=== PATIENT | male | born 1990 | race Caucasian/White ===

== ENCOUNTER 2016-09-25 00:18 | Emergency (ER) | payer SELFPAY ==
--- NOTE | ~2016-09-25 | ER ---
[facility] AGE[facility] 26 [address] ROOM: [place] [id number] LOCATION: [facility] ADMIT DATE: 09/25/2016 ER/Outpatient Report DISCHARGE DATE: 09/25/2016 FAMILY PHYSICIAN: PHYSICIAN, NO ATTENDING PHYSICIAN: Maria Luisa Talamantes Time of Arrival: 0018 hours. Time of Evaluation: 0022 hours. IDENTIFICATION: A 26-year-old male. CHIEF COMPLAINT: Chest tightness. HISTORY OF PRESENT ILLNESS: The patient has had chest tightness throughout the day today, worse with a deep breath. He also is complaining of right-sided abdominal pain and also left ankle pain. The patient has had no fever or chills. PAST MEDICAL HISTORY: ALLERGIES: NO KNOWN DRUG ALLERGIES. CURRENT MEDICATIONS: Denies. MEDICAL PROBLEMS: Denies. SURGERIES: Denies. SOCIAL HISTORY: The patient states that he got out of assisted in [place] and is here in [place] to be around family and trying to find a job. He has been living, some with his dad and some with his aunt. Apparently, he and his girlfriend were homeless since the girlfriend who is moved to [place], but he stayed here. Tobacco use: Five cigarettes per day. Alcohol use: Occasional. Drug use: Denies. FAMILY HISTORY: No family history of premature coronary artery disease. [facility] AGE: 26 Y [address] ROOM: [place] [id number] LOCATION: [facility] ADMIT DATE: 09/25/2016 ER/Outpatient Report DISCHARGE DATE: 09/25/2016 FAMILY PHYSICIAN: PHYSICIAN, NO ATTENDING PHYSICIAN: Maria Luisa Talamantes REVIEW OF SYSTEMS: GENERAL: He has had no fever, but has had some chills. HEENT: No headache, blurred vision, or double vision. NECK: No neck pain. No numbness or tingling. LUNGS: He has a nonproductive cough. No shortness of breath. Chest pain, substernal. No radiation. Worse with a deep breath. Not worse with movement. ABDOMEN: Abdominal pain more right-sided. No nausea, vomiting, or diarrhea. No blood in his stools. No dark, tarry, or black stools. : No dysuria. MUSCULOSKELETAL: Pain in his left ankle and both feet. PSYCH: No pertinent psych history. ENDOCRINE: No history of diabetes or thyroid abnormalities. HEME: No history of bleeding diathesis or blood clots. PHYSICAL EXAMINATION: VITAL SIGNS: Height 6 feet 4 inches, weight 89.5 kg. Blood pressure 127/89, pulse 90, respirations 16, temperature 97.4, saturation 98% on room air. GENERAL: A 26-year-old male in no acute distress. HEAD: Normocephalic, atraumatic. EYES: Pupils equal and reactive to light and accommodation. Extraocular movements intact. NOSE: Mucosa pink. No lesions. Mouth: No lesions. Pharynx benign. NECK: Supple. No lymphadenopathy. LUNGS: Clear to auscultation. Breath sounds are equal. HEART: Regular rate and rhythm. ABDOMEN: Soft, nondistended, nontender. Minimally tender to deep palpation. No rebound or guarding. No CVA tenderness. CHEST: The patient has some substernal chest pain reproducible to palpation. EXTREMITIES: No edema. Upper extremities, full range of motion. No deformities. Lower extremities, the patient has no swelling or deformities. No tenderness of his ankle. He does have a socks on, that appear that they were wet and then have dried on his feet like this. He is very unkept and patient has erythematous macules and papules on the toes of both feet with some tender erythema consistent with hernia with secondary infection. There is good distal pulses and sensation is intact. LABORATORY DATA: Hemoglobin 16.2, hematocrit 46.2, platelets 274, white count 14.2 with a normal differential. INR 1.27. Sodium 136, potassium 3.6, chloride 102, CO2 26, BUN 12, creatinine 1.3. Blood sugar 116. Liver enzymes normal. Magnesium 1.9. Alcohol less than 0.010. Amylase 33, lipase 82, CPK elevated at 766, CK-MB 7.7, troponin I less than 0.040. IMAGING DATA: EKG normal sinus rhythm at 80 beats per minute. No acute ST elevation or PATIENT'S NAME: LISA ROLAND [facility] AGE: 26 Y [address] ROOM: [place] [address] LOCATION: [facility] ADMIT DATE: 09/25/2016 ER/Outpatient Report DISCHARGE DATE: 09/25/2016 FAMILY PHYSICIAN: PHYSICIAN, NO ATTENDING PHYSICIAN: Maria Luisa Talamantes depression. Chest x-ray, 1-view, no acute process. IMPRESSION: 1. Chest wall pain. 2. Abdominal pain, no acute etiology. 3. Hernia. 4. Cellulitis of his toes. PLAN: Keflex 500 mg t.i.d. for 7 days. Clean dry socks, change frequently. [facility]. Follow up sooner if any problems or concerns. MARIA LUISA TALAMANTES MD CAR/modl /[id number] d: 09/25/16 0427 t: 09/29/16 0629, OUTPATIENT REPORT
[2016-09-25 00:48] LABS: BASOPHIL # 0.1 K/uL (0.0-0.2); BASOPHIL % 0.4 %; EOSINOPHIL % 0.3 %; HEMATOCRIT 46.2 % (37.0-53.0); HEMOGLOBIN 16.2 g/dL (12.0-17.0); IMMATURE GRANULOCYTE % 0.3 %; LYMPHOCYTE # 2.7 K/uL (0.8-4.0); LYMPHOCYTE % 18.9 %; MCH 30.1 pg (27.0-34.0); MCHC 35.1 gm/dL (32.0-36.5); MCV 85.7 fl (83.0-98.0); MONOCYTE # 1.6 K/uL (0.0-1.0); MONOCYTE % 10.9 %; MPV 9.5 fl (9.4-12.4); NEUTROPHIL # (ANC) 9.8 K/uL (1.4-9.0); NEUTROPHIL % 69.2 %; NRBC % 0 /100WBC (0-0.00); PLATELET COUNT 274 K/uL (150-450); RBC 5.39 M/uL (4.00-6.00); RDW-CV 12.7 % (11.9-14.6); WBC 14.2 K/uL (4.0-11.0)
[2016-09-25 00:58] LABS: INR - (THERAPEUTIC) 1.27 (0.92-1.07); PROTIME 13.4 SECONDS (9.8-11.4); PTT 28 SECONDS (25-32)
[2016-09-25 01:06] LABS: ALBUMIN 4.2 gm/dL (3.5-5.0); ALK PHOS 79 IU/L (33-138); ALT 22 IU/L (12-78); ANION GAP 11.6 (10.0-19.0); AST 37 IU/L (10-40); BLOOD UREA NITROGEN 12 mg/dL (6-24); CALCIUM 9.4 mg/dL (8.5-10.5); CHLORIDE 102 mMol/L (96-110); CO2 26 mMol/L (22-32); CPK 766 IU/L (35-332); CREATININE 1.3 mg/dL (0.6-1.3); MAGNESIUM 1.9 mg/dL (1.8-2.6); POTASSIUM 3.6 mMol/L (3.7-5.1); SODIUM 136 mMol/L (135-145); TOTAL BILIRUBIN 1.1 mg/dL (0.0-1.5)
== END 2016-09-25 01:39 | disposition disaster alternative care site (69) ==
LOC: GMED 00:18
PROVIDERS: Family Medicine
DX: R07.89 Other chest pain (principal); K46.9 Unspecified abdominal hernia without obstruction or gangrene; L03.032 Cellulitis of left toe; L03.031 Cellulitis of right toe
CPT/HCPCS: G0480